=== PATIENT | female | born 2005 ===

== ENCOUNTER 2024-08-23 06:05 | Emergency (ER) | payer MEDICAID ==
[~2024-08-23] VITALS: Ht 175.3 cm; Wt 68.0 kg
[2024-08-23 06:12] VITALS: BP 136/70; PULSE 72; RESP 0; TEMP 97.9; O2SAT 100
== END 2024-08-23 07:02 | disposition home or self-care (01) ==
LOC: EMS 06:14
DX: F41.9 Anxiety disorder, unspecified (principal); F12.90 Cannabis use, unspecified, uncomplicated
CPT/HCPCS: 99283; Z7502